=== PATIENT | female | born 1950 | race Caucasian/White ===

== ENCOUNTER 2024-12-04 12:03 | Emergency (ER) | payer BC ==
[~2024-12-04] VITALS: Ht 160 cm; Wt 52.2 kg
--- NOTE | 2024-12-04 13:27 | Physician Documentation ---
History of Present Illness ~ Chief Complaint: Nausea Stated Complaint: URINARY COMPLICATIONS Time Seen by MD: 13:07 HPI 74-year-old female who presents with nausea and vomiting History is obtained from the patient and her sister. They state that she has been ill for the past 2 days or so. She has been having nausea and vomiting. She was also holding her lower abdomen like it was hurting her. She is not making as much urine as normal and the urine is very dark. No definite fevers or chills. No respiratory symptoms. No dysuria. No other acute concerns. Medication Reconciliation Allergies: Coded Allergies: No Known Allergies (Unverified , 12/04/24) Scheduled Promethazine Hcl (Promethegan), 25 MG RC Q8H Scheduled PRN ONDANSETRON ODT 4mg tablet (Ondansetron Odt), 1 TAB PO Q8H PRN for nause a/vomiting Review of Systems Constitutional: Denies: fever Gastrointestinal: Reports: nausea, vomiting Physical Exam Vital Signs: Temperature: 98.7, Heart Rate: 65, Respiratory Rate: 18, BP: 125/98, Pulse Oximetry: 93, Weight: 52.200 Oxygen Flow Rate: 0 Physical Exam General: This is a very pleasant and smiling older woman, sister at bedside HEENT: Atraumatic, oropharynx appears dry Heart: Regular rate and rhythm, normal-appearing peripheral perfusion Lungs: normal work of breathing, normal oxygen saturation on room air Abdomen: Soft, nondistended, nontender all quadrants while distracted Neuro: Alert and oriented to self and location, has some trouble with history questions Psychiatric: Calm and cooperative with exam Progress Results/Orders Results/Orders Orders - MARVIN WILLIAM MD Cult Urine + [address] (12/04/24 15:28) Completed Orders - MARVIN WILLIAM MD Hcg, Ur Ql (12/04/24 13:25) Cbc/Diff (12/04/24 13:25) BMP (12/04/24 13:25) Lipase (12/04/24 13:25) CMP (12/04/24 13:25) Normal Saline 1000ml (0.9% Sodium Chlori (12/04/24 13:25) Ondansetron Inj. (Zofran 4mg/2ml Vial) (12/04/24 13:25) Ua W/Microscopic, Cult If Ind (12/04/24 15:05) Medications Received in ER Medications (Trade) Dose Ordered Sig/Desmond Route PRN Reason Start Time Stop Time Status Last Admin Dose Admin Sodium Chloride 1,000 ml @ 1,000 mls/hr ONCE ONCE IV 12/04/24 13:25 12/04/24 14:24 DC 12/04/24 14:16 1,000 MLS/HR (Zofran 4mg/2ml vial) 4 mg ONCE ONCE IM 12/04/24 13:25 12/04/24 13:27 DC 12/04/24 14:17 4 MG Vital Signs 12/04/24 12/04/24 12/04/24 12/04/24 12:20 13:16 15:08 15:50 Temp 98.7 Pulse 65 56 89 Resp 18 18 14 B/P (MAP) 125/98 166/89 (114) 152/74 (100) Pulse Ox 93 96 98 O2 Flow Rate 0 0 0 Laboratory Tests Test 12/04/24 13:45 12/04/24 15:05 White Blood Count 4.8 Red Blood Count 4.34 Hemoglobin 14.0 Hematocrit 41.1 Mean Corpuscular Volume 94.6 Mean Corpuscular Hemoglobin 32.3 H Mean Corpuscular Hemoglobin Concent 34.1 Red Cell Distribution Width 13.1 Platelet Count 197 Mean Platelet Volume 7.4 Neutrophils (%) (Auto) 57.4 Lymphocytes (%) (Auto) 32.5 Monocytes (%) (Auto) 8.9 Eosinophils (%) (Auto) 0.5 Basophils (%) (Auto) 0.7 Neutrophils # (Auto) 2.8 Lymphocytes # (Auto) 1.6 Monocytes # (Auto) 0.4 Eosinophils # (Auto) 0.0 Basophils # (Auto) 0.0 CBC Comment Sodium Level 140 Potassium Level 4.0 Chloride Level 105 Carbon Dioxide Level 28.0 Anion Gap 7 L Blood Urea Nitrogen 12 Creatinine 0.56 Estimated GFR/1.73 m2 > 90 BUN/Creatinine Ratio 21.4 H Glucose Level 89 Calcium Level 9.7 Total Bilirubin 0.8 Aspartate Amino Transf (AST/SGOT) 16 Alanine Aminotransferase (ALT/SGPT) 14 Alkaline Phosphatase 63 Total Protein 7.3 Albumin 3.5 Globulin 3.8 Albumin/Globulin Ratio 0.9 L Lipase 48 Chemistry Comments Urine Specimen Description Cln catch midstream Urine Color Yellow Urine Clarity Clear Urine pH 6.5 Urine Specific [place] 1.015 Urine Protein Negative Urine Glucose (UA) Negative Urine Ketones 40 H Urine Occult Blood Negative Urine Nitrite Negative Urine Bilirubin Negative Urine Urobilinogen 1.0 Urine Leukocyte Esterase Small H Urine RBC None seen Urine WBC 20-30 H Urine WBC Clumps Few Urine Squamous Epithelial Cells Few Urine Bacteria Few Urine Mucus None seen Urine Culture Indicated Indicated Volume Urine Centrifuged 10 ml Urine HCG, Qualitative Negative Urine Comment Medical Decision Making Additional Comments The patient presents with dehydration after some recent episodes of vomiting. By time of my evaluation she is no longer vomiting and has a benign abdominal exam. Her lab work is unremarkable and the urinalysis does not appear consistent with a UTI. She has no urinary symptoms. I had a shared decision- making conversation with the patient and her family. We will wait for urine culture. After IV fluids and Zofran she was feeling improved and did tolerate oral hydration. At this time she seems safe for discharge home with a prescription for nausea medications and outpatient follow up. Departure Time of Disposition: 15:42 Disposition: 01 HOME / SELF CARE / HOMELESS Impression: Primary Impression: Dehydration Condition: Improved Referrals: NO PRIMARY CARE PROVIDER (PCP) Prescriptions Promethazine Hcl (Promethegan) 25 Mg Supp.rect 25 MG RC Q8H for nausea, #10 SUPP 1 Refill Prov: MARVIN WILLIAM MD 12/04/24 ONDANSETRON ODT 4mg tablet (ONDANSETRON ODT) 4 Mg Tab.rapdis 1 TAB PO Q8H PRN for nausea/vomiting for 30 Days, #20 TAB 1 Refill Prov: MARVIN WILLIAM MD 12/04/24 Education Educated: Patient, Family Educated regarding: diagnosis, treatment, need for follow up Signature Scribe Signature: na Attestation: MARVIN Cruz MD Dec 04, 2024 13:27
[2024-12-04 13:52] LABS: MEAN PLATELET VOLUME 7.4 FL (7.4-10.4); RED CELL DISTRIBUTION WIDTH 13.1 % (11.5-14.5)
[2024-12-04 14:07] LABS: CREATININE 0.56 MG/DL (0.40-0.90); TOTAL CARBON DIOXIDE 28.0 MMOL/L (24-32); eCRCL 72 ML/MIN; eGFR > 90 ML/MIN
[2024-12-04] MEDS: normal saline 1000ml 1,000 ML IV ONE (14:16)
[2024-12-04] MEDS: ondansetron/PF 4mg/2ml inj IM ONE (14:17)
[2024-12-04 15:19] LABS: LEUKOCYTE ESTERASE ,URINE SMALL (Neg); NITRITES, URINE NEGATIVE (Neg); OCCULT BLOOD,URINE NEGATIVE (Neg)
[2024-12-04 15:20] LABS: URINE HCG NEGATIVE (NEG)
[2024-12-04 15:22] LABS: UA COLLECTION TYPE CLN CATCH MIDSTREAM
[2024-12-04 15:28] LABS: MUCUS STRANDS NONE SEEN /LPF (Neg); SQUAMOUS EPITHELIAL CELL,UR FEW /LPF (FEW); WBC CLUMPS,URINE FEW /HPF (NEGATIVE)
[2024-12-04] MEDS ORDERED: ONDA-243 PO (15:44)
[2024-12-04] MEDS ORDERED: PROM25SU9 RC (15:44)
[2024-12-04 15:59] VITALS: BP 152/74; PULSE 89; RESP 14; TEMP 98.7; O2SAT 98
== END 2024-12-04 16:00 | disposition home or self-care (01) ==
LOC: ER 12:03
DX: E86.0 Dehydration (principal); Z79.899 Other long term (current) drug therapy
CPT/HCPCS: 36415; 80053; 81001; 81025; 83690; 85025; 87088; 96372; 99283; J2405; J7030

== ENCOUNTER 2024-12-15 11:43 | Emergency (ER) | payer BC ==
[~2024-12-15] VITALS: Ht 157.5 cm; Wt 51.0 kg
[~2024-12-15 11:43] MED LIST: ONDA-243 PO; PROM25SU9 RC
[2024-12-15 12:54] LABS: LEUKOCYTE ESTERASE ,URINE SMALL (Neg); NITRITES, URINE NEGATIVE (Neg); OCCULT BLOOD,URINE SMALL (Neg)
[2024-12-15 13:00] LABS: UA COLLECTION TYPE CLN CATCH MIDSTREAM
[2024-12-15 13:01] LABS: SQUAMOUS EPITHELIAL CELL,UR FEW /LPF (FEW)
--- NOTE | 2024-12-15 13:16 | Physician Documentation ---
History of Present Illness ~ Chief Complaint: Urinary Symptoms Stated Complaint: BLADDER INFECTION Time Seen by MD: 12:32 Primary Medical Doctor: Dr. Ortega HPI .74-year-old female presents to the ED for complaint of pelvic pain. Denies any urinary frequency or burning urination however she was recently seen here for similar symptoms.. Denies any fevers however she has decreased oral intake. Has a diagnosis of dementia as well. Per her friends report she is at her cognitive baseline. Medication Reconciliation Allergies: Coded Allergies: No Known Allergies (Unverified , 12/04/24) Scheduled Promethazine Hcl (Promethegan), 25 MG RC Q8H Scheduled PRN ONDANSETRON ODT 4mg tablet (Ondansetron Odt), 1 TAB PO Q8H PRN for nausea/vomiting Review of Systems All Other Systems at this time: Reviewed and Negative ROS As stated above in the HPI, otherwise all systems are reviewed and negative. Physical Exam Vital Signs: Temperature: 98.6, Source: Oral, Heart Rate: 68, Respiratory Rate: 16, BP: 122/76, Pulse Oximetry: 100, Weight: 51.000 Oxygen Flow Rate: 0 Physical Exam General: Alert, no apparent distress. Respiratory: Lungs clear, no respiratory distress. Cardiovascular: Regular rate and rhythm, no murmurs. Gastrointestinal: Soft, nontender, nondistended. Bowels sounds present. Neurologic: Oriented x4. Psychiatric: Normal mood and affect. Skin: Normal color, warm and dry. No edema, no ecchymosis. Progress Results/Orders Results/Orders Completed Orders - KENDALL VILLANUEVA TOBACCO SHAKER Sulfamethox/Trimetho. Ds Tab ( Ds (12/15/24 13:15) Medications Received in ER Medications (Trade) Dose Ordered Sig/Desmond Route PRN Reason Start Time Stop Time Status Last Admin Dose Admin ( DS tab) 1 tab ONCE ONCE PO 12/15/24 13:15 12/15/24 13:16 DC 12/15/24 13:18 1 TAB Vital Signs 12/15/24 11:52 Temp 98.6 Pulse 68 Resp 16 B/P (MAP) 122/76 Pulse Ox 100 O2 Flow Rate 0 Laboratory Tests Test 12/15/24 12:47 Urine Specimen Description Cln catch midstream Urine Color Yellow Urine Clarity Turbid Urine pH 5.5 Urine Specific [place] >=1.030 Urine Protein 30 H Urine Glucose (UA) Negative Urine Ketones 15 H Urine Occult Blood Small Urine Nitrite Negative Urine Bilirubin Small Urine Urobilinogen 0.2 Urine Leukocyte Esterase Small H Urine RBC 20-50 Urine WBC Tntc H Urine Squamous Epithelial Cells Few Urine Bacteria 1+ Urine Culture Indicated Indicated Volume Urine Centrifuged 10 ml Urine Comment Medical Decision Making Findings Going to treat this patient for a UTI in the outpatient setting. She does not present with any signs of metabolic encephalopathy or your of sepsis. Vital signs are reassuring and PT is hemodynamically stable and appropriate per her baseline. Urinary Diff Dx:Considerations: Include: AAA, , Aortic dissection, Appendicitis, Bowel obstruction, Cholelithiasis, Choleangitis, DJD, Ectopic , Hepatitis, HNP, Impaction, Intrauterine , Musculoskeletal pain, Ovarian torsion, Pancreatitis, PID, Post-Op complication, Pyelonephritis, Renal failure, Strain, Urinary Obstruction, Urolithiasis, Urinary retention, UTI, Vaginitis, Other Departure Disposition: 01 HOME / SELF CARE / HOMELESS Impression: Primary Impression: Urinary tract pain Condition: Stable Discharge Instructions: Urinary Tract Infection, Adult Referrals: NO PRIMARY CARE PROVIDER (PCP) Prescriptions Sulfamethoxazole/Trimethoprim (Septra Ds Tab) 800 Mg/160 Mg Tablet 1 TAB PO Q12H for 10 Days, #20 TAB Prov: KENDALL VILLANUEVA NP 12/15/24 Education Educated: Patient Educated regarding: diagnosis Signature Scribe Signature: f Attestation: Scribed for Kendall Villanueva [employer] by Kendall Villanueva - [facility] . 12/15/24 13:16 KENDALL VILLANUEVA NP Dec 15, 2024 13:16
[2024-12-15] MEDS: sulfamethoxazole/trimethoprim DS (800/160mg) tablet PO ONE (13:18)
[2024-12-15] MEDS ORDERED: SULF1TAB45 PO (13:34)
[2024-12-15 13:55] VITALS: BP 116/72; PULSE 74; RESP 16; TEMP 98.6; O2SAT 99
== END 2024-12-15 13:54 | disposition home or self-care (01) ==
LOC: ER 11:43
DX: N23 Unspecified renal colic (principal); Z79.899 Other long term (current) drug therapy
CPT/HCPCS: 81001; 87088; 99283